=== PATIENT | female | born 1975 | race Caucasian/White ===

== ENCOUNTER 2017-12-25 17:10 | Emergency (ER) | payer BC | END 2017-12-25 17:43 | disposition home or self-care (01) | LOC: MADERS 17:10 | DX: S61.210A Laceration without foreign body of right index finger without damage to nail, initial encounter (principal); E05.90 Thyrotoxicosis, unspecified without thyrotoxic crisis or storm; Z79.899 Other long term (current) drug therapy; W25.XXXA Contact with sharp glass, initial encounter | CPT/HCPCS: 12001; Q4049 ==

== ENCOUNTER 2020-01-13 14:24 | Outpatient (CLI) | payer BC ==
--- NOTE | 2020-01-13 14:45 | RAD ---
RIGHT HIP TWO VIEWS: 01/13/20 HISTORY: Chronic hip pain. FINDINGS/IMPRESSION: No acute fracture, dislocation, or bony destruction seen. There is a focal area of heterotopic ossifi cation adjacent to the greater trochanter. POS: OFF
[2020-01-13 15:19] LABS: Thyroid Stimulating Hormone 0.0243 uIU/mL (0.35-4.94)
[2020-01-13 22:25] LABS: Free T4 (Free Thyroxine) 1.51 ng/dL (0.70-1.48)
== END 2020-01-13 14:25 | disposition home or self-care (01) ==
LOC: MADRAD 14:24
PROVIDERS: ATTEND Family Medicine
DX: M25.551 Pain in right hip (principal); M89.9 Disorder of bone, unspecified
CPT/HCPCS: 36415; 84439; 84443